=== PATIENT | male | born 1960 | race Caucasian/White ===

== ENCOUNTER 2023-05-25 11:53 | Emergency (ER) | payer SELFPAY ==
[~2023-05-25] VITALS: Ht 190.5 cm; Wt 88.6 kg
[2023-05-25 12:14] VITALS: BP 129/64
--- NOTE | 2023-05-25 13:02 | NUR ---
attempted to call for discharge instructions at [phone], went straight to voicemail.
--- NOTE | 2023-05-25 13:40 | NUR ---
TC TO APS . PATIENT'S LEFT ER AND DID NOT GIVE CONTACT NUMBER, THE TWO NUMBERS THAT SHE GAVE ARE NOT TAKING CALLS. REPORT OF CONCERN MADE TO [facility]. PATIENT IS NOT ABLE TO PROVIDE ANY PERSONAL INFORMATION TO STAFF. INFORMATION THAT WE HAVE OBTAINED FROM EMS AND SO: GERMAN HER : [id number] [place] [address] ARRIVED FOR 'S DC AND SIGNED DC PAPERWORK, THEN TOOK THE DC PAPERS AND THREW THEM IN THE GARBAGE CAN THEY WERE LEAVING OUT OF THE ROOM.
== END 2023-05-25 13:47 | disposition home or self-care (01) ==
LOC: ER 11:54
DX: F03.90 Unspecified dementia, unspecified severity, without behavioral disturbance, psychotic disturbance, mood disturbance, and anxiety (principal)
CPT/HCPCS: 99283

== ENCOUNTER 2025-06-30 19:18 | Emergency (ER) | payer MEDICARE, MEDICAID ==
[~2025-06-30] VITALS: Ht 188 cm; Wt 73.6 kg
[2025-06-30 19:21] VITALS: TEMP 98.8
--- NOTE | 2025-06-30 19:53 | Physician Documentation ---
History of Present Illness ~ Chief Complaint: Confused Stated Complaint: CONFUSED Time Seen by MD: 19:41 HPI Patient presents to the emergency room brought in for wandering. Patient has a history of end-stage dementia in his DNR/DNI with comfort measures on pulsed documented in January 2025. Patient found to be hypothermic by EMS however it has been noted to be over 100 outside today. Past Medical History Past Medical History: No Pertinent History Review of Systems ROS All review of systems negative except as per HPI Physical Exam Vital Signs: Temperature: 98.8, Source: Axillary, Heart Rate: 64, Respiratory Rate: 18, BP: 106/80, Pulse Oximetry: 97, Weight: 73.600 Physical Exam General: Patient is awake, alert, pleasantly demented and redirectable Head: Normocephalic and atraumatic. Eyes: Conjunctival normal. EOMI. PERRL. ENT: Mucous membranes moist. Neck: Supple, trachea is midline. Chest: Clear to auscultation bilaterally without rales, rhonchi, or wheezes. There is no accessory muscle use or retractions. Cardiac: RRR without murmurs, gallops, or rubs. Abd: Soft, nondistended, nontender, with normoactive bowel sounds. No guarding, rebound, or rigidity. Progress Results/Orders Results/Orders Orders - ANEESH HAYNES MD Chest,Single View (06/30/25 19:35) Monitor (06/30/25 19:35) Saline Lock (06/30/25 19:35) Oxygen (06/30/25 19:35) Electrocardiogram (06/30/25 19:35) Hs Troponin I W Calculations (06/30/25 21:35) Hs Troponin I W Calculations (06/30/25 22:35) Completed Orders - ANEESH HAYNES MD Chest,Single View (06/30/25 19:35) Cbc/Diff (06/30/25 19:35) BMP (06/30/25 19:35) PBNP (06/30/25 19:35) Hs Troponin I W Calculations (06/30/25 19:35) Urinalysis, Cult If Indicated (06/30/25 19:35) Procalcitonin (06/30/25 19:53) Vital Signs 06/30/25 06/30/25 19:21 19:53 Temp 98.8 Pulse 64 Resp 18 18 B/P (MAP) 106/80 Pulse Ox 97 Laboratory Tests Test 06/30/25 19:44 06/30/25 20:32 White Blood Count 5.0 Red Blood Count 3.12 L Hemoglobin 10.3 L Hematocrit 30.1 L Mean Corpuscular Volume 96.6 Mean Corpuscular Hemoglobin 32.9 H Mean Corpuscular Hemoglobin Concent 34.0 Red Cell Distribution Width 12.7 Platelet Count 163 Mean Platelet Volume 7.5 Neutrophils (%) (Auto) 71.4 Lymphocytes (%) (Auto) 17.6 L Monocytes (%) (Auto) 9.0 Eosinophils (%) (Auto) 1.5 Basophils (%) (Auto) 0.5 Neutrophils # (Auto) 3.6 Lymphocytes # (Auto) 0.9 L Monocytes # (Auto) 0.5 Eosinophils # (Auto) 0.1 Basophils # (Auto) 0.0 CBC Comment Sodium Level 143 Potassium Level 3.9 Chloride Level 111 H Carbon Dioxide Level 24.5 Anion Gap 8 Blood Urea Nitrogen 25 H Creatinine 1.01 Estimated GFR/1.73 m2 74 BUN/Creatinine Ratio 24.8 H Glucose Level 108 H Calcium Level 8.2 L Troponin I High Sensitivity 7 Pro-B-Type Natriuretic Peptide 148 H Albumin 2.9 L Procalcitonin < 0.05 Chemistry Comments Urine Specimen Description Non-specified Urine Color Yellow Urine Clarity Clear Urine pH 6.0 Urine Specific [place] 1.025 Urine Protein Negative Urine Glucose (UA) Negative Urine Ketones Trace H Urine Occult Blood Negative Urine Nitrite Negative Urine Bilirubin Negative Urine Urobilinogen 1.0 Urine Leukocyte Esterase Negative Urine Culture Indicated Not ind Volume Urine Centrifuged 10 ml Urine Comment EKG/XRAY/CT/US/VASC/MRI EKG : Additional Comment EKG interpreted by myself shows time of 1939, rate 60, sinus rhythm, normal axis, no ST changes Medical Decision Making Findings Patient presents to the emergency room after found wandering in the neighborhood. Differentials include but are not limited to sepsis, urinary tract infection, hypothermia secondary to sun exposure, electrolyte disturbances therefore emergent labs and chest x-ray ordered. Labs and urine and chest x-ray reassuring. Vital signs stable. Negotiator confirms patient is acting like himself. Departure Disposition: HOME / SELF CARE / HOMELESS Impression: Primary Impression: Alzheimer's disease Condition: Fair Discharge Instructions: Dementia Referrals: NO PRIMARY CARE PROVIDER (PCP) Signature Scribe Signature: No scribe Attestation: The note accurately reflects work and decisions made by me.Aneesh Haynes MD 06/30/25 21:09 ANEESH HAYNES MD Jun 30, 2025 19:53
[2025-06-30 19:58] LABS: MEAN PLATELET VOLUME 7.5 FL (7.4-10.4); RED CELL DISTRIBUTION WIDTH 12.7 % (11.5-14.5)
--- NOTE | 2025-06-30 20:06 | RADIOLOGY REPORT ---
CHEST RADIOGRAPH Indication: CP Technique: Single frontal view of the chest was obtained Comparison: None FINDINGS: Lines and Tubes: None Lungs: No focal consolidation. Pleura: No effusion. No pneumothorax. Cardiomediastinal contours: Unremarkable Bones: No acute osseous abnormality. IMPRESSION: No acute cardiopulmonary disease.
[2025-06-30 20:23] LABS: CREATININE 1.01 MG/DL (0.60-1.10); PRO BRAIN NATRIURETIC PEPTIDE 148 PG/ML (0-125); TOTAL CARBON DIOXIDE 24.5 MMOL/L (24-32); eCRCL 74 ML/MIN; eGFR 74 ML/MIN
[2025-06-30 20:46] LABS: LEUKOCYTE ESTERASE ,URINE NEGATIVE (Neg); NITRITES, URINE NEGATIVE (Neg); OCCULT BLOOD,URINE NEGATIVE (Neg)
[2025-06-30 20:47] LABS: UA COLLECTION TYPE NON-SPECIFIED
[2025-06-30 22:09] VITALS: BP 127/78; PULSE 62; RESP 18; O2SAT 98
--- NOTE | 2025-07-01 07:04 | ELECTROCARDIOGRAPH REPORT ---
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
== END 2025-06-30 22:13 | disposition home or self-care (01) ==
LOC: ER 19:19
DX: G30.9 Alzheimer's disease, unspecified (principal); F02.80 Dementia in other diseases classified elsewhere, unspecified severity, without behavioral disturbance, psychotic disturbance, mood disturbance, and anxiety; I49.8 Other specified cardiac arrhythmias
CPT/HCPCS: 36415; 71045; 80048; 81003; 83880; 84145; 84484; 85025; 93005; 99285; C1758